=== PATIENT | male | born 1960 | race Caucasian/White ===

== ENCOUNTER 2016-09-26 17:05 | Emergency (ER) | payer SELFPAY ==
[~2016-09-26] VITALS: Ht 183.5 cm; Wt 89.8 kg
[2016-09-26] MEDS ORDERED: Sodium Bicarbonate 50 ML in NS 1000ml 1,000 ML IV SCH (17:30)
[2016-09-26] MEDS ORDERED: Sodium Bicarbonate 8.4% 50ml Inj ONE (17:34)
[2016-09-26 17:45] LABS: BASOPHILS % (AUTO) 1.6 % (0.0-2.0); EOSINOPHILS % (AUTO) 0.6 % (0.0-3.0); MEAN CORPUSCULAR HEMOGLOBIN 30.6 PG (27.0-31.0); MEAN CORPUSCULAR HGB CONC 32.8 G/DL (32.0-36.0); MEAN CORPUSCULAR VOLUME 94 FL (80-99); MEAN PLATELET VOLUME 6.3 FL (6.5-10.1); MONOCYTES % (AUTO) 8.3 % (1.0-10.0); NEUTROPHILS % (AUTO) 73.6 % (45.0-75.0); PLATELET COUNT 218 K/UL (150-450); RED BLOOD COUNT 5.32 M/UL (4.70-6.10); RED CELL DISTRIBUTION WIDTH 12.7 % (11.6-14.8); WHITE BLOOD COUNT 8.9 K/UL (4.8-10.8)
[2016-09-26] MEDS ORDERED: Metoprolol 5mg/5ml Inj IVP ONE ×2 (17:45→20:00)
[2016-09-26 17:56] VITALS: BP 142/98
[2016-09-26 18:04] LABS: PROTHROMBIN TIME 10.2 SEC (9.30-11.50)
[2016-09-26 18:14] LABS: ALANINE AMINOTRANSFERASE 19 U/L (3-41); ALBUMIN/GLOBULIN RATIO 2.6 (1.0-2.7); ANION GAP 18 (5-15); ASPARTATE AMINO TRANSFERASE 18 U/L (5-40); CALCIUM 9.8 mg/dL (8.6-10.2); CARBON DIOXIDE 26 mEQ/L (20-30); CHLORIDE 96 mEQ/L (98-107); GLOMERULAR FILTRATION RATE > 60 mL/min (>60); HEMOLYSIS 7; LIPASE 31 U/L (< 60); SODIUM 140 mEQ/L (135-145); TOTAL PROTEIN 7.2 g/dL (6.6-8.7); TROPONIN I < 0.30 ng/mL (<=0.30)
[2016-09-26 19:05] VITALS: BP_SYST 147; BP_SYST 160; BP_SYST 170; BP_DIAS 101; BP_DIAS 110; BP_DIAS 116
[2016-09-26 19:55] LABS: APPEARANCE,URINE CLEAR; KETONES,URINE NEGATIVE (NEGATIVE); LEUKOCYTE ESTERASE ,URINE NEGATIVE (NEGATIVE); NITRITE,URINE NEGATIVE (NEGATIVE); PH,URINE 8 (4.5-8.0); PROTEIN,URINE NEGATIVE (NEGATIVE); UROBILINOGEN,URINE NORMAL MG/DL (0.0-1.0)
[2016-09-26 19:58] VITALS: BP 148/119
[2016-09-26 20:48] VITALS: BP 167/105
--- NOTE | 2016-09-26 22:37 | Emergency Room Report ---
History of Present Illness General Chief Complaint: Chest Pain Source: Patient Present Illness HPI Patient is a 56-year-old male who presented after having increased palpitations. The patient states he had prior history of PTSD as well as irregular heartbeats. Patient stated he had sudden onset of symptoms. Patient states he would have intermittent episodes were to begin to have some muscle jerking. He reported having palpitations rapid heartbeat. Patient had previously been evaluated at [facility] and was noted to have had normal ejection fraction as well as normal EKGs. The patient denied any suicidal thoughts or auditory hallucinations. Allergies: Coded Allergies: PENICILLINS (Verified Allergy, Intermediate, 09/26/16) Patient History Past Medical History: see triage record Reviewed Nursing Documentation: PMH: Agreed, PSxH: Agreed Nursing Documentation-PMH Past Medical History: No History, Except For Hx Cardiac Problems: Yes Hx Hypertension: Yes Review of Systems All Other Systems: negative except mentioned in HPI Physical Exam Vital Signs Date Time Temp Pulse Resp B/P Pulse Ox O2 Delivery O2 Flow Rate FiO2 09/26/16 17:20 99.0 235 35 160/69 98 Room Air Sp02 EP Interpretation: reviewed, normal General Appearance: normal inspection, well appearing, no apparent distress, alert, GCS 15 Head: atraumatic ENT: normal ENT inspection, hearing grossly normal, normal voice Neck: normal inspection, full range of motion, supple, no bony tend Respiratory: normal inspection, lungs clear, normal breath sounds, no respiratory distress, no retraction, no wheezing Cardiovascular #1: no edema, tachycardia Gastrointestinal: normal inspection, normal bowel sounds, non tender, soft, no guarding, no hernia Genitourinary: no CVA tenderness Musculoskeletal: normal inspection, back normal, normal range of motion Neurologic: normal inspection, alert, oriented x3, responsive, ethanol operations manager III-XII nml as tested, motor strength/tone normal, speech normal Psychiatric: normal inspection, judgement/insight normal, memory normal, mood/ affect normal Skin: normal inspection, normal color, no rash Medical Decision Making Diagnostic Impression: Primary Impression: Palpitations ER Course Patient presented for palpitations.Differential diagnosis included but was not limited to acute coronary syndrome, pulmonary embolism, pneumonia, aortic dissection, shingles, pneumothorax, aortic dissection, esophageal rupture, pericarditis. Because of complexity of patient's case laboratory testing and imaging studies were ordered. EKG interpreted by me showed sinus tachycardia with a rate of [address] there were [address] acute [address] or T wave changes noted. Review the patient's old chart from [facility]. The patient was noted to have a recent CT imaging with 8 millimeter appendix. The patient was noted to have benign abdominal exam. Patient stated he felt better and wanted to leave. The patient subsequently contacted 911 and stated that he was poisoned with heavy metal. He had not previously discussed any concern for poison with me prior to making a call. The patient subsequently decided to leave. The patient was awake alert at the time of leaving the hospital. He appear to be behaving somewhat manipulatively. Labs Test 09/26/16 17:10 09/26/16 17:29 09/26/16 19:01 Sodium Level 140 mEQ/L (135-145) Potassium Level 4.0 mEQ/L (3.4-4.9) Chloride Level 96 mEQ/L (98-107) Carbon Dioxide Level 26 mEQ/L (20-30) Anion Gap 18 (5-15) Blood Urea Nitrogen 11 mg/dL (7-23) Creatinine 1.0 mg/dL (0.7-1.2) Estimat Glomerular Filtration Rate > 60 mL/min (>60) Glucose Level 100 mg/dL (74-106) Calcium Level 9.8 mg/dL (8.6-10.2) Total Bilirubin 0.5 mg/dL (0.0-1.2) Aspartate Amino Transf (AST/SGOT) 18 U/L (5-40) Alanine Aminotransferase (ALT/SGPT) 19 U/L (3-41) Alkaline Phosphatase 53 U/L (40-129) Troponin I < 0.30 ng/mL (<=0.30) Total Protein 7.2 g/dL (6.6-8.7) Albumin 5.2 g/dL (3.5-5.2) Globulin 2.0 g/dL Albumin/Globulin Ratio 2.6 (1.0-2.7) Lipase 31 U/L (< 60) White Blood Count 8.9 K/UL (4.8-10.8) Red Blood Count 5.32 M/UL (4.70-6.10) Hemoglobin 16.3 G/DL (14.2-18.0) Hematocrit 49.8 % (42.0-52.0) Mean Corpuscular Volume 94 FL (80-99) Mean Corpuscular Hemoglobin 30.6 PG (27.0-31.0) Mean Corpuscular Hemoglobin Concent 32.8 G/DL (32.0-36.0) Red Cell Distribution Width 12.7 % (11.6-14.8) Platelet Count 218 K/UL (150-450) Mean Platelet Volume 6.3 FL (6.5-10.1) Neutrophils (%) (Auto) 73.6 % (45.0-75.0) Lymphocytes (%) (Auto) 16.0 % (20.0-45.0) Monocytes (%) (Auto) 8.3 % (1.0-10.0) Eosinophils (%) (Auto) 0.6 % (0.0-3.0) Basophils (%) (Auto) 1.6 % (0.0-2.0) Prothrombin Time 10.2 SEC (9.30-11.50) Prothromb Time International Ratio 1.0 (0.9-1.1) Activated Partial Thromboplast Time 24 SEC (23-33) Urine Color Pale yellow Urine Appearance Clear Urine pH 8 (4.5-8.0) Urine Specific [place] 1.010 (1.005-1.035) Urine Protein Negative (NEGATIVE) Urine Glucose (UA) Negative (NEGATIVE) Urine Ketones Negative (NEGATIVE) Urine Occult Blood Negative (NEGATIVE) Urine Nitrite Negative (NEGATIVE) Urine Bilirubin Negative (NEGATIVE) Urine Urobilinogen Normal MG/DL (0.0-1.0) Urine Leukocyte Esterase Negative (NEGATIVE) Urine Opiates Screen Negative (NEGATIVE) Urine Barbiturates Screen Negative (NEGATIVE) Phencyclidine (PCP) Screen Negative (NEGATIVE) Urine Amphetamines Screen Negative (NEGATIVE) Urine Benzodiazepines Screen Negative (NEGATIVE) Urine Cocaine Screen Negative (NEGATIVE) Urine Marijuana (THC) Screen Negative (NEGATIVE) EKG Diagnostic Results Rate: tachycardiac Rhythm: NSR ST Segments: no acute changes Last Vital Signs Date Time Temp Pulse Resp B/P Pulse Ox O2 Delivery O2 Flow Rate FiO2 09/26/16 19:58 104 22 148/119 95 Room Air 09/26/16 17:20 99.0 Status: improved Disposition: HOME, SELF-CARE Condition: Stable Patient Instructions: Panic Attacks, [id number], Palpitations Willie Samaniego Sep 26, 2016 22:37
--- NOTE | 2016-09-30 00:11 | Cardiology Report ---
APPROVED REPORT EKG Measurement Heart [id number] ID [id number] Normal sinus rhythm Possible Left atrial enlargement Borderline ECG
== END 2016-09-26 20:49 | disposition home or self-care (01) ==
LOC: EMR 19:14
DX: R00.2 Palpitations (principal); I10 Essential (primary) hypertension; Z88.0 Allergy status to penicillin; F43.10 Post-traumatic stress disorder, unspecified
CPT/HCPCS: 36415; 80053; 80300; 81003; 83690; 84484; 85025; 85610; 85730; 93005; 96360; 96374; 96375

== ENCOUNTER 2016-09-26 21:39 | Emergency (ER) | payer SELFPAY ==
[~2016-09-26] VITALS: Ht 183.5 cm; Wt 76.7 kg
[2016-09-26 21:40] VITALS: BP 128/82
--- NOTE | 2016-09-26 21:42 | Emergency Room Report ---
History of Present Illness General Chief Complaint: Generalized Weakness Source: Patient, EMS Present Illness HPI Is a 56-year-old male who came in with chief complaint of heavy metal poisoning from gallium. 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 He is concerned that he has heavy metal poisoning and needed chelation. He was here earlier and workup was negative. He left he sat in the street and someone called 911. He denies suicidal thought homicidal thought. Denies any drug use. No other complaint. He said he called is controlled the told him to go to the hospital for chelation. Allergies: Coded Allergies: PENICILLINS (Verified Allergy, Intermediate, 09/26/16) Patient History Past Medical History: see triage record, old chart reviewed Past Surgical History: other Pertinent Family History: none Social History: Denies: smoking Immunizations: other Reviewed Nursing Documentation: PMH: Agreed, PSxH: Agreed Nursing Documentation-PM Past Medical History: No History, Except For Hx Cardiac Problems: Yes Hx Hypertension: Yes Review of Systems Eye: Denies: blurred vision, eye pain ENT: Denies: ear pain, nose congestion, throat swelling Respiratory: Denies: cough, shortness of breath Cardiovascular: Denies: chest pain, palpitations Gastrointestinal: Denies: abdominal pain, diarrhea, nausea, vomiting Musculoskeletal: Denies: back pain, joint pain Skin: Denies: rash Neurological: Denies: headache, numbness Endocrine: Denies: increased thirst, increased urine Hematologic/Lymphatic: Denies: easy bruising All Other Systems: negative except mentioned in HPI Physical Exam Vital Signs Date Time Temp Pulse Resp B/P Pulse Ox O2 Delivery O2 Flow Rate FiO2 09/26/16 21:36 78 15 128/82 99 Room Air vitals normal. Sp02 EP Interpretation: reviewed, normal General Appearance: well appearing, no apparent distress, alert Head: normocephalic, atraumatic Eyes: bilateral eye EOMI, bilateral eye PERRL ENT: hearing grossly normal, normal pharynx Neck: full range of motion, supple, no meningismus Respiratory: chest non-tender, lungs clear, normal breath sounds Cardiovascular #1: regular rate, rhythm, no murmur Gastrointestinal: normal bowel sounds, non tender, no mass, no organomegaly, no bruit, non-distended Musculoskeletal: back normal, gait/station normal, normal range of motion Psychiatric: mood/affect normal Skin: warm/dry Medical Decision Making Diagnostic Impression: Primary Impression: Palpitations Additional Impression: Delusion ER Course Patient has a fixed delusion. Is accompanied he uses solid gallium, been heavy metal poisoning is unlikely. They do not use any gas from gallium. He looks well otherwise. There is no petechia testing I did do an ER. Told to followup with his primary care DrLinwood Questionable drug use. He has no suicidal thought homicidal thought. He appear to be anxious. Last Vital Signs Date Time Temp Pulse Resp B/P Pulse Ox O2 Delivery O2 Flow Rate FiO2 09/26/16 21:36 78 15 128/82 99 Room Air Status: unchanged Disposition: HOME, SELF-CARE Condition: Stable Additional Instructions: Followup with your DrLinwood for testing. Followup your DrLinwood within 7 days. Return if symptom worsen. VARUN JANG M.D. Sep 26, 2016 21:42
[2016-09-26 21:47] VITALS: BP 128/82
== END 2016-09-26 21:48 | disposition home or self-care (01) ==
LOC: EDBD 21:39 → EMR 21:45
DX: R00.2 Palpitations (principal); F22 Delusional disorders; Z88.0 Allergy status to penicillin; I10 Essential (primary) hypertension
CPT/HCPCS: 99283